=== PATIENT | female | born 1950 | race Caucasian/White ===

== ENCOUNTER 2022-06-06 10:57 | Inpatient (IN) | payer OTHER ==
[~2022-06-06] VITALS: Ht 157.5 cm; Wt 59.0 kg
[2022-06-06] MEDS ORDERED: GLIMEPIRIDE1 M1 PO (11:43)
[2022-06-06] MEDS ORDERED: ZESTRIL2.5 MG PO (11:43)
[2022-06-06] MEDS ORDERED: D3 + K2 DOTS 11 EACH PO (11:44)
[2022-06-06] MEDS ORDERED: ALTOPREV20 MG PO (11:44)
[2022-06-12] MEDS ORDERED: FAMOTIDINE20 MG (10:37)
== END 2022-06-15 15:14 | disposition home or self-care (01) | DRG 330 ==
LOC: O/R 06-12 05:48 → SURG 06-12 07:00
PROVIDERS: ADMIT Colon & Rectal Surgery; ATTEND Colon & Rectal Surgery
PROC: 0DBP4ZZ Excision of Rectum, Percutaneous Endoscopic Approach (ICD-10-PCS; 2022-06-12)
PROC: 0DJD8ZZ Inspection of Lower Intestinal Tract, Via Natural or Artificial Opening Endoscopic (ICD-10-PCS; 2022-06-12)
PROC: 0DTN4ZZ Resection of Sigmoid Colon, Percutaneous Endoscopic Approach (ICD-10-PCS; principal; 2022-06-12 07:00)
DX: K57.32 Diverticulitis of large intestine without perforation or abscess without bleeding (principal); K92.1 Melena; N73.6 Female pelvic peritoneal adhesions (postinfective); N99.4 Postprocedural pelvic peritoneal adhesions; D64.9 Anemia, unspecified; E11.9 Type 2 diabetes mellitus without complications; R59.0 Localized enlarged lymph nodes; Z20.822 Contact with and (suspected) exposure to COVID-19; I11.9 Hypertensive heart disease without heart failure